=== PATIENT | male | born 1940 | race Caucasian/White ===

== ENCOUNTER → 2017-06-24 | Outpatient (CLI) | payer MEDICARE, OTHER ==
[2017-06-24 10:11] LABS: ABSOLUTE EOSINOPHILS # (AUTO) 0.1 10^3/uL (0.0-0.6); ABSOLUTE LYMPHOCYTES (AUTO) 1.5 10^3/uL (0.5-4.7); ABSOLUTE MONOCYTES (AUTO) 0.6 10^3/uL (0.1-1.4); ABSOLUTE NEUT (AUTO) 4.1 10^3/uL (1.7-8.2); BASOPHILS % (AUTO) 0.4 % (0-2); EOSINOPHILS % (AUTO) 2.3 % (0-6); HEMATOCRIT 40.4 % (37.9-51.0); HEMOGLOBIN 14.3 g/dL (13.5-17.0); HGB HCT DIFFERENCE 2.5; MEAN CORPUSCULAR HEMOGLOBIN 34.3 pg (27.0-33.4); MEAN CORPUSCULAR HGB CONC 35.4 g/dL (32.0-36.0); MEAN CORPUSCULAR VOLUME 97 fl (80-97); MONOCYTES % (AUTO) 9.3 % (3-13); RED BLOOD COUNT 4.17 10^6/uL (4.35-5.55); RED CELL DISTRIBUTION WIDTH 13.5 % (11.5-14.0); WHITE BLOOD COUNT 6.3 10^3/uL (4.0-10.5)
[2017-06-24 10:31] LABS: ALANINE AMINOTRANSFERASE 25 U/L (21-72); ALKALINE PHOSPHATASE 72 U/L (38-126); ANION GAP 10 (5-19); ASPARTATE AMINO TRANSFERASE 26 U/L (17-59); BILIRUBIN,DIRECT 0.3 mg/dL (0.0-0.4); BLOOD UREA NITROGEN 10 mg/dL (7-20); CALCIUM 9.2 mg/dL (8.4-10.2); CARBON DIOXIDE 29 mmol/L (22-30); CHLORIDE 95 mmol/L (98-107); CHOLESTEROL 160.31 mg/dL (0-200); Direct HDL 67 mg/dL (>40); GLUCOSE 77 mg/dL (75-110); POTASSIUM 4.9 mmol/L (3.6-5.0); SODIUM 133.8 mmol/L (137-145); TOTAL PROTEIN 6.5 g/dL (6.3-8.2); TRIGLYCERIDES 41 mg/dL (<150)
[2017-06-24 10:42] LABS: DIRECT LDL 78 mg/dL (<100)
== END ==
LOC: OD 08:53
PROVIDERS: ATTEND Internal Medicine
DX: I25.10 Atherosclerotic heart disease of native coronary artery without angina pectoris (principal); I10 Essential (primary) hypertension; I73.9 Peripheral vascular disease, unspecified; E78.5 Hyperlipidemia, unspecified; R53.82 Chronic fatigue, unspecified
CPT/HCPCS: 36415; 80053; 80061; 84443; 85025

== ENCOUNTER 2017-08-22 10:40 | Observation (INO) | payer MEDICARE, OTHER ==
[2017-08-22] MEDS ORDERED: ONDANSETRON HCL INJ/PF 4 MG/2 ML SDV IV ONE (10:53)
[2017-08-22] MEDS ORDERED: NORMAL SALINE 1000 ML 1,000 ML IV PRN (10:53)
--- NOTE | 2017-08-22 10:53 | ER Document Report ---
ED Medical Screen (RME) - General Chief Complaint: Abdominal Pain Stated Complaint: VOMITING Time Seen by Provider: 08/22/17 10:48 Mode of Arrival: Ambulatory Information source: Patient TRAVEL OUTSIDE OF THE [place] IN LAST 30 DAYS: No - HPI Patient complains to provider of: Nausea, vomiting, diarrhea Notes: 08/22/17 10:53 Patient is a 76-year-old male presenting to the emergency room today complaining of 3 day history of nausea, vomiting, diarrhea, crampy abdominal pain, denies urinary symptoms, no fevers Past Medical History Renal/ Medical History: Denies: Hx Peritoneal Dialysis Physical Exam - Vital signs Vitals: Temp Pulse Resp BP Pulse Ox 97.5 F 102 H 16 160/76 H 94 08/22/17 10:43 08/22/17 10:43 08/22/17 10:43 08/22/17 10:43 08/22/17 10:43 Course - Vital Signs Vital signs: Temp Pulse Resp BP Pulse Ox 97.5 F 102 H 16 160/76 H 94 08/22/17 10:43 08/22/17 10:43 08/22/17 10:43 08/22/17 10:43 08/22/17 10:43
[2017-08-22 11:39] LABS: APPEARANCE,URINE SLIGHTLY-CLOUDY; BILIRUBIN,URINE NEGATIVE (NEGATIVE); GLUCOSE, URINE NEGATIVE (NEGATIVE); KETONES,URINE 20 mg/dL (NEGATIVE); LEUKOCYTE ESTERASE,URINE NEGATIVE (NEGATIVE); NITRITE,URINE NEGATIVE (NEGATIVE); PROTEIN,URINE NEGATIVE (NEGATIVE); URINE SPECIFIC GRAVITY 1.016; UROBILINOGEN,URINE NEGATIVE mg/dL (<2.0)
--- NOTE | 2017-08-22 12:06 | ER Document Report ---
ED General - General Chief Complaint: Abdominal Pain Stated Complaint: VOMITING Time Seen by Provider: 08/22/17 10:48 Mode of Arrival: Ambulatory Information source: Patient Notes: Patient presents to emergency department with complaints of vomiting diarrhea abdominal pain for the past 3 days. Patient reports on he experienced vomiting diarrhea and then after that abdominal pain. He reports he is unable to keep anything down although he was able to drink some Gatorade this morning. He denies fever. He reports he lives alone no recent antibiotics no recent overseas trips. Denies pain with void, denies testicular pain. Patient also complains of back pain,reports chronic back pain history of 2 back surgeries. Denies chest pain. TRAVEL OUTSIDE OF THE [place] IN LAST 30 DAYS: No - HPI Onset: Other - Onset/Duration: Persistent Quality of pain: Cramping Severity: Severe Pain Level: 4 Associated symptoms: Diarrhea, Nausea, Vomiting Exacerbated by: Denies Relieved by: Denies Similar symptoms previously: No Recently seen / treated by doctor: No - Related Data Allergies/Adverse Reactions: ciprofloxacin Allergy (Mild, Verified 08/22/17 10:59) Home Medications: Current Home Medications Dexlansoprazole [Dexilant 30 mg Capsule] 30 mg PO DAILY 08/22/17 [History] Gabapentin [Neurontin 300 mg Capsule] 600 mg PO Q12 08/22/17 [History] Lisinopril [Prinivil 10 mg Tablet] 10 mg PO DAILY 08/22/17 [History] Metoprolol Succinate [Toprol Xl 50 mg Tab.sr] 25 mg PO DAILY 08/22/17 [History] Multivitamin/Iron/Folic Acid [Centrum Adults Tablet] 1 tab PO DAILY 08/22/17 [ History] Oxycodone HCl/Acetaminophen [Oxycodone-Acetaminophen 5-325] 1 tab PO Q12 [History] Ranolazine [Ranexa 500 mg Tab.sr] 1,000 mg PO QAM 08/22/17 [History] Ranolazine [Ranexa 500 mg Tab.sr] 1,000 mg PO QHS 08/22/17 [History] Rosuvastatin Calcium [Crestor 10 mg Tablet] 10 mg PO DAILY 08/22/17 [History] Sertraline HCl [Zoloft 50 mg Tablet] 50 mg PO QHS 08/22/17 [History] Silodosin [Rapaflo] 8 mg PO DAILY 08/22/17 [History] Past Medical History - General Information source: Patient - Social History Smoking Status: Never Smoker Chew tobacco use (# tins/day): No Frequency of alcohol use: Occasional - 2 beers a day Drug Abuse: None Occupation: retired [employer] Lives with: Alone Family History: None Patient has suicidal ideation: No Patient has homicidal ideation: No - Past Medical History Cardiac Medical History: Reports: Hx Coronary Artery Disease, Hx Hypercholesterolemia, Hx Hypertension Renal/ Medical History: Denies: Hx Peritoneal Dialysis Past Surgical History: Reports: Hx Abdominal Surgery - hernia repair, Hx Cardiac Surgery, Hx Orthopedic Surgery - back surgery Review of Systems - Review of Systems Notes: Review HPI for review of systems., All other systems negative Physical Exam - Vital signs Vitals: Temp Pulse Resp BP Pulse Ox 97.5 F 102 H 16 160/76 H 94 08/22/17 10:43 08/22/17 10:43 08/22/17 10:43 08/22/17 10:43 08/22/17 10:43 - Notes Notes: PHYSICAL EXAMINATION: GENERAL: Nontoxic looking, no acute distress HEAD: Atraumatic, normocephalic. EYES: Pupils equal round extraocular movements intact, sclera anicteric, conjunctiva are normal. ENT: nares patent, Moist mucous membranes. NECK: Normal range of motion, supple without lymphadenopathy LUNGS: CTAB and equal. No wheezes rales or rhonchi. HEART: Regular rate and rhythm +murmur ABDOMEN: Soft, lower abdominal tenderness. No guarding, no rebound BACK: Chronic back pain EXTREMITIES: Normal range of motion, no pitting edema. No cyanosis. NEUROLOGICAL: Cranial nerves grossly intact. Normal sensory/motor exams. PSYCH: Normal mood, normal affect. SKIN: Warm, Dry, normal turgor, no rashes or lesions noted Course - Re-evaluation Re-evalutation: 08/22/17 12:05 Patient tachycardic will obtain labs 08/22/17 13:59 CT Obtained diverticulosis ileus pattern noted white count 11.1. Dr. Tompkins consulted Dr. Tompkins agrees with plan of care to admit for observation rehydration Dr. Calderon contacted and agrees to admission regular floor. 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 - Vital Signs Vital signs: Temp Pulse Resp BP Pulse Ox 97.5 F 79 16 160/76 H 94 08/22/17 10:43 08/22/17 15:30 08/22/17 10:43 08/22/17 10:43 08/22/17 10:43 - Laboratory Result Diagrams: 08/22/17 12:10 08/22/17 12:10 Laboratory results interpreted by me: 08/22/17 08/22/17 08/22/17 11:00 12:10 12:10 WBC 11.1 H RBC 4.05 L MCH 33.8 H RDW 14.7 H Seg Neutrophils % 79.5 H Lymphocytes % 11.9 L Absolute Neutrophils 8.8 H Sodium 129.9 L Chloride 93 L Total Protein 5.7 L Urine Ketones 20 H - Diagnostic Test Radiology reviewed: Image reviewed, Reports reviewed - diverticulosis, ileus - EKG Interpretation by Me EKG shows normal: Sinus rhythm Rate: Normal - Consults BUSTEED Time consulted: 13:58 Reason for consultation: 08/22/17 13:58 ILEUS, DIVERTICULOSIS, ADMISSION Consulted provider: will see as inpatient Discharge - Discharge Clinical Impression: Ileus Nausea & vomiting Qualifiers: Vomiting type: unspecified Vomiting Intractability: non-intractable Qualified Code(s): R11.2 - Nausea with vomiting, unspecified Diarrhea Qualifiers: Diarrhea type: unspecified type Qualified Code(s): R19.7 - Diarrhea, unspecified Diverticulosis Qualifiers: Diverticulosis site: diverticulosis of large intestine Diverticulosis bleeding : diverticulosis without bleeding Qualified Code(s): K57.30 - Diverticulosis of large intestine without perforation or abscess without bleeding Condition: Stable Disposition: ADMITTED OBSERVATION Admitting Provider: Hospitalist - busteed Unit Admitted: Medical Floor
[2017-08-22 12:27] LABS: ABSOLUTE EOSINOPHILS # (AUTO) 0.1 10^3/uL (0.0-0.6); ABSOLUTE LYMPHOCYTES (AUTO) 1.3 10^3/uL (0.5-4.7); ABSOLUTE MONOCYTES (AUTO) 0.9 10^3/uL (0.1-1.4); ABSOLUTE NEUT (AUTO) 8.8 10^3/uL (1.7-8.2); BASOPHILS % (AUTO) 0.2 % (0-2); EOSINOPHILS % (AUTO) 0.7 % (0-6); HEMATOCRIT 39.1 % (37.9-51.0); HEMOGLOBIN 13.7 g/dL (13.5-17.0); LYMPHOCYTES % (AUTO) 11.9 % (13-45); MEAN CORPUSCULAR HEMOGLOBIN 33.8 pg (27.0-33.4); MEAN CORPUSCULAR VOLUME 97 fl (80-97); MONOCYTES % (AUTO) 7.7 % (3-13); RED BLOOD COUNT 4.05 10^6/uL (4.35-5.55); RED CELL DISTRIBUTION WIDTH 14.7 % (11.5-14.0); SEGMENTED NEUTROPHILS % (AUTO) 79.5 % (42-78); WHITE BLOOD COUNT 11.1 10^3/uL (4.0-10.5)
[2017-08-22 12:50] LABS: ALANINE AMINOTRANSFERASE 27 U/L (21-72); ALBUMIN 3.6 g/dL (3.5-5.0); ALKALINE PHOSPHATASE 95 U/L (38-126); ANION GAP 11 (5-19); ASPARTATE AMINO TRANSFERASE 21 U/L (17-59); BILIRUBIN,DIRECT 0.4 mg/dL (0.0-0.4); BILIRUBIN,TOTAL 1.3 mg/dL (0.2-1.3); BLOOD UREA NITROGEN 12 mg/dL (7-20); CALCIUM 9.5 mg/dL (8.4-10.2); CARBON DIOXIDE 26 mmol/L (22-30); CHLORIDE 93 mmol/L (98-107); CREATININE RESULT 0.69 mg/dL (0.52-1.25); GLUCOSE 96 mg/dL (75-110); LIPASE 44.7 U/L (23-300); SODIUM 129.9 mmol/L (137-145); TOTAL PROTEIN 5.7 g/dL (6.3-8.2)
--- NOTE | 2017-08-22 13:43 | RADIOLOGY REPORT (SQ) ---
EXAM DESCRIPTION: CT ABD/PELVIS WITH IV ONLY COMPLETED DATE/TIME: 08/22/2017 1:29 pm REASON FOR STUDY: abd pain, n/v COMPARISON: None. TECHNIQUE: CT scan of the abdomen and pelvis performed using helical scanning technique with dynamic intravenous contrast injection. No oral contrast. Images reviewed with lung, soft tissue, and bone windows. Reconstructed coronal and sagittal MPR images reviewed. Delayed images for evaluation of the urinary system also acquired. All images stored on PACS. All CT scanners at this facility use dose modulation, iterative reconstruction, and/or weight based d osing when appropriate to reduce radiation dose to as low as reasonably achievable (ALARA). [facility]: Dose Right [facility]: CareDose [facility]: Dose Right [facility]: Teradose 4D [facility]: [employer] CONTRAST TYPE AND DOSE: contrast/concentration: Isovue 370.00 mg/ml; Total Contrast Delivered: 78.0 ml; Total Saline Delivered: 67.0 ml RENAL FUNCTION: BUN 12 creatinine 0.7 RADIATION DOSE: Up-to-date CT equipment and radiation dose reduction techniques were employed. CTDIv ol: 6.2 - 9.1 mGy. DLP: 737 mGy-cm.. LIMITATIONS: Artifact from lower lumbar fusion. Patient motion. FINDINGS: LOWER CHEST: No significant findings. No nodules or infiltrates. LIVER: Normal size. No masses. No dilated ducts. SPLEEN: Normal size. No focal lesions. PANCREAS: No masses. No significant calcifications. No adjacent inflammation or peripancreatic fluid collections. Pancreatic duct not dilated. GALLBLADDER: No identified stones by CT criteria. No inflammatory changes to suggest cholecystitis. ADRENAL GLANDS: No significant masses or asymmetry. RIGHT KIDNEY AND URETER: No solid masses. No significant calcifications. No hydronephrosis or hyd roureter. LEFT KIDNEY AND URETER: No solid masses. No significant calcifications. No hydronephrosis or hydr oureter. AORTA AND VESSELS: No aneurysm. RETROPERITONEUM: No retroperitoneal adenopathy, hemorrhage or masses. BOWEL AND PERITONEAL CAVITY: Diverticulosis descending and sigmoid colon. Gas fluid levels in loops of small bowel caliber upper limits of normal in the left upper quadrant. New clear transition. Mor e distal small bowel is normal in caliber. Gas in the colon. No free air. Trace free fluid in the pelvis. APPENDIX: Normal. PELVIS: See above. Normal bladder. ABDOMINAL WALL: Prior ventral hernia repair. BONES: No acute findings. OTHER: No other significant finding. IMPRESSION: Diverticulosis. Ileus pattern. No high-grade obstruction. TECHNICAL DOCUMENTATION: JOB ID: [id number] Quality ID # [id number]: Final reports with documentation of one or more dose reduction techniques (e.g., Au tomated exposure control, adjustment of the mA and/or kV according to patient size, use of iterative reconstruction technique) 2010 [employer]- All Rights Reserved
[2017-08-22] MEDS ORDERED: ACETAMINOPHEN 325 MG TABLET PO PRN (14:20)
[2017-08-22] MEDS ORDERED: ONDANSETRON HCL INJ/PF 4 MG/2 ML SDV IV PRN (14:20)
[2017-08-22] MEDS ORDERED: MORPHINE SULFATE 10 MG/ML INJ IV PRN (15:22)
--- NOTE | 2017-08-22 15:24 | PDOC H&P ---
History of Present Illness Admission Date/PCP: 08/22/17 14:20 IVELISSE DIMAS, Patient complains of: Nausea, vomiting, diarrhea and abdominal pain History of Present Illness: CHANNING ROSS is a 76 year old male, with past medical history of essential hypertension, coronary artery disease status post stent, dyslipidemia and GERD; who presents to [facility] emergency room with complaints of nausea, vomiting and diarrhea for the last 3 days. He states he was unable to keep any liquids down yesterday. His morning he was able to keep down some Gatorade. He continues to have diarrhea and diffuse abdominal discomfort. He denies fever or chills. He has no sick contacts at home. He feels generally weak. He has had diarrhea this morning, none since that time. He denies any recent antibiotic use. He denies the consumption of any undercooked poultry or well water. He has not travelled out of the area Past Medical History Cardiac Medical History: Reports: Coronary Artery Disease, Hyperlipidema, Hypertension Pulmonary Medical History: Reports: None EENT Medical History: Reports: None Neurological Medical History: Reports: None Endocrine Medical History: Reports: None Malignancy Medical History: Reports: None GI Medical History: Reports: Gastroesophageal Reflux Disease Musculoskeltal Medical History: Reports: Arthritis, Other - Chronic back pain Skin Medical History: Reports: None Psychiatric Medical History: Reports: None Traumatic Medical History: Reports: None Hematology: Reports: None Infectious Medical History: Reports: None Past Surgical History Past Surgical History: Reports: Orthopedic Surgery - back surgery Social History Information Source: Patient Lives with: Alone Smoking Status: Never Smoker Frequency of Alcohol Use: Rare Hx Recreational Drug Use: No - Advance Directive Resuscitation Status: Full Code Family History Family History: CAD, Hyperlipidemia, Hypertension Parental Family History Reviewed: Yes Children Family History Reviewed: Yes Sibling(s) Family History Reviewed.: Yes Medication/Allergy Home Medications: Dexlansoprazole [Dexilant 30 mg Capsule] 30 mg PO DAILY 08/22/17 Gabapentin [Neurontin 300 mg Capsule] 600 mg PO Q12 08/22/17 Lisinopril [Prinivil 10 mg Tablet] 10 mg PO DAILY 08/22/17 Metoprolol Succinate [Toprol Xl 50 mg Tab.sr] 25 mg PO DAILY 08/22/17 Multivitamin/Iron/Folic Acid [Centrum Adults Tablet] 1 tab PO DAILY 08/22/17 Oxycodone HCl/Acetaminophen [Oxycodone-Acetaminophen 5-325] 1 tab PO Q12 Ranolazine [Ranexa 500 mg Tab.sr] 1,000 mg PO QAM 08/22/17 Ranolazine [Ranexa 500 mg Tab.sr] 1,000 mg PO QHS 08/22/17 Rosuvastatin Calcium [Crestor 10 mg Tablet] 10 mg PO DAILY 08/22/17 Sertraline HCl [Zoloft 50 mg Tablet] 50 mg PO QHS 08/22/17 Silodosin [Rapaflo] 8 mg PO DAILY 08/22/17 Allergies/Adverse Reactions: ciprofloxacin Allergy (Mild, Verified 08/22/17 10:59) Review of Systems Constitutional: PRESENT: anorexia, chills, weakness Eyes: ABSENT: visual disturbances Ears: ABSENT: hearing changes Cardiovascular: ABSENT: chest pain, dyspnea on exertion, edema, orthropnea, palpitations Respiratory: ABSENT: cough, hemoptysis Gastrointestinal: PRESENT: abdominal pain, bloating, diarrhea, nausea, vomiting Genitourinary: ABSENT: dysuria, hematuria Musculoskeletal: PRESENT: back pain Integumentary: ABSENT: rash, wounds Neurological: ABSENT: abnormal gait, abnormal speech, confusion, dizziness, focal weakness, syncope Psychiatric: ABSENT: anxiety, depression, homidical ideation, suicidal ideation Hematologic/Lymphatic: ABSENT: easy bleeding, easy bruising Physical Exam Vital Signs: Temp Pulse Resp BP Pulse Ox 97.5 F 102 H 16 160/76 H 94 08/22/17 10:43 08/22/17 10:43 08/22/17 10:43 08/22/17 10:43 08/22/17 10:43 General appearance: PRESENT: no acute distress, well-developed, well-nourished Head exam: PRESENT: atraumatic, normocephalic Eye exam: PRESENT: conjunctival injection Ear exam: PRESENT: normal external ear exam Mouth exam: PRESENT: moist, tongue midline Neck exam: ABSENT: carotid bruit, JVD, lymphadenopathy, thyromegaly Respiratory exam: PRESENT: clear to auscultation bonnie. ABSENT: rales, rhonchi, wheezes Cardiovascular exam: PRESENT: bradycardia Pulses: PRESENT: normal dorsalis pedis pul Vascular exam: PRESENT: normal capillary refill GI/Abdominal exam: PRESENT: hyperactive bowel sounds - generalized to deep palpation, soft, tenderness Rectal exam: PRESENT: deferred Extremities exam: PRESENT: full ROM. ABSENT: calf tenderness, clubbing, pedal edema Musculoskeletal exam: PRESENT: ambulatory, full ROM, normal inspection Neurological exam: PRESENT: alert, awake, oriented to person, oriented to place , oriented to time, oriented to situation, CN II-XII grossly intact. ABSENT: motor sensory deficit Psychiatric exam: PRESENT: appropriate affect, normal mood. ABSENT: homicidal ideation, suicidal ideation Skin exam: PRESENT: dry, intact, warm. ABSENT: cyanosis, rash Results Impressions: Abdomen/Pelvis CT 08/22/17 12:42 IMPRESSION: Diverticulosis. Ileus pattern. No high-grade obstruction. Assessment & Plan - Diagnosis (1) Hyponatremia Is this a current diagnosis for this admission?: Yes Plan: Secondary to dehydration,diarrhea, nausea and vomiting. Will gently rehydrate (2) Diarrhea Qualifiers: Diarrhea type: unspecified type Qualified Code(s): R19.7 - Diarrhea, unspecified (4) Nausea & vomiting Qualifiers: Vomiting type: unspecified Vomiting Intractability: non-intractable Qualified Code(s): R11.2 - Nausea with vomiting, unspecified Plan: IV fluids and zofran (6) CAD (coronary artery disease) Qualifiers: Coronary Disease-Associated Artery/Lesion type: [place] artery Associated angina: with stable angina Is this a current diagnosis for this admission?: Yes Plan: Continue home medication (7) Essential hypertension Is this a current diagnosis for this admission?: Yes Plan: Continue home medications (8) GERD (gastroesophageal reflux disease) Qualifiers: Esophagitis presence: esophagitis presence not specified Qualified Code(s) : K21.9 - Gastro-esophageal reflux disease without esophagitis Is this a current diagnosis for this admission?: Yes Plan: Continue PPI therapy and add histamine jemma (9) Dyslipidemia Is this a current diagnosis for this admission?: Yes Plan: Continue statin (10) Chronic back pain Qualifiers: Back pain location: low back pain Is this a current diagnosis for this admission?: Yes Plan: continue pain medication as necessary - Time Time Spent: 50 to 70 Minutes Critical Time spent with patient: 25-34 minutes Medications reviewed and adjusted accordingly: Yes Anticipated discharge: Home Within: within 24 hours
[2017-08-22] MEDS ORDERED: ENOXAPARIN SODIUM INJ 40 MG/0.4 ML DISP.SYRIN SUBCUT ONE (16:00)
--- NOTE | 2017-08-22 16:31 | EKG REPORT ---
SEVERITY:- OTHERWISE NORMAL ECG - SINUS RHYTHM BORDERLINE LEFT AXIS DEVIATION : Confirmed by: Annabelle Foley 22-Aug-2017 16:30:16
[2017-08-22] MEDS: NORMAL SALINE 1000 ML 1,000 ML IV PRN ×2 (16:56→21:14)
[2017-08-22] MEDS: LANSOPRAZOLE 30 MG TAB.RAP.DR PO SCH (16:56)
[2017-08-22] MEDS: DOCUSATE SODIUM 100 MG CAPSULE PO SCH (17:08)
[2017-08-22] MEDS ORDERED: DOCUSATE SODIUM 100 MG/10 ML UDC PO SCH (18:00)
[2017-08-22] MEDS: OXYCODONE-ACETAMINOPHEN 5-325 MG TABLET PO PRN (20:11)
[2017-08-22] MEDS: SERTRALINE HCL 50 MG TABLET PO SCH (21:14)
[2017-08-22] MEDS: ATORVASTATIN CALCIUM 20 MG TABLET PO SCH (21:14)
[2017-08-22] MEDS: FAMOTIDINE INJ/PF 20 MG/2 ML SDV IV SCH (21:14)
[2017-08-22] MEDS: GABAPENTIN 300 MG CAPSULE PO SCH (21:14)
[2017-08-22] MEDS ORDERED: RANOLAZINE 500 MG TAB.SR.12H PO ONE (22:10)
[2017-08-22] MEDS: RANOLAZINE 500 MG TAB.SR.12H PO SCH (23:16)
[2017-08-23 05:06] LABS: ANION GAP 9 (5-19); BLOOD UREA NITROGEN 9 mg/dL (7-20); CALCIUM 8.7 mg/dL (8.4-10.2); CARBON DIOXIDE 26 mmol/L (22-30); CHLORIDE 100 mmol/L (98-107); CREATININE RESULT 0.64 mg/dL (0.52-1.25); GLUCOSE 79 mg/dL (75-110); LIPASE 62.7 U/L (23-300); MAGNESIUM 1.9 mg/dL (1.6-2.3); SODIUM 134.6 mmol/L (137-145)
[2017-08-23] MEDS: LANSOPRAZOLE 30 MG TAB.RAP.DR PO SCH ×2 (06:11→16:22)
[2017-08-23] MEDS: NORMAL SALINE 1000 ML 1,000 ML IV PRN (06:11)
[2017-08-23] MEDS ORDERED: RANOLAZINE 500 MG TAB.SR.12H PO SCH (08:00)
[2017-08-23] MEDS: DOCUSATE SODIUM 100 MG CAPSULE PO SCH ×2 (09:46→18:12)
[2017-08-23] MEDS: GABAPENTIN 300 MG CAPSULE PO SCH ×2 (09:47→22:27)
[2017-08-23] MEDS: FAMOTIDINE INJ/PF 20 MG/2 ML SDV IV SCH ×2 (09:48→22:27)
[2017-08-23] MEDS ORDERED: METOPROLOL SUCCINATE 25 MG TAB.SR.24H PO SCH (10:00)
[2017-08-23] MEDS ORDERED: METOPROLOL SUCCINATE 50 MG TAB.SR.24H PO SCH (10:00)
[2017-08-23] MEDS ORDERED: ENOXAPARIN SODIUM INJ 40 MG/0.4 ML DISP.SYRIN SUBCUT SCH (10:00)
[2017-08-23] MEDS ORDERED: (PENDING PHARMACY ID) (Silodosin [Rapaflo] 8 MG) PO SCH (10:00)
[2017-08-23] MEDS ORDERED: LISINOPRIL 10 MG TABLET PO SCH (10:00)
[2017-08-23] MEDS ORDERED: CIPROFLOXACIN HCL 500 MG TABLET PO SCH (10:45)
[2017-08-23] MEDS ORDERED: CEFUROXIME 500 MG TABLET PO ONE (11:00)
--- NOTE | 2017-08-23 14:05 | PDOC DISCHARGE SUMMARY ---
General - Admit/Disc Date/PCP Admission Date/Primary Care Provider: 08/22/17 14:20 IVELISSE DIMAS, Discharge Date: 08/24/17 - Discharge Diagnosis (1) Hyponatremia Is this a current diagnosis for this admission?: Yes Summary: Resolved secondary to dehydration and vomiting (2) Diarrhea Is this a current diagnosis for this admission?: Yes Summary: Resolving (3) Ileus Is this a current diagnosis for this admission?: Yes Summary: Resolved secondary to viral gastroenteritis (4) Nausea & vomiting Summary: Resolved (5) CAD (coronary artery disease) of artery bypass graft Is this a current diagnosis for this admission?: Yes Summary: Continue home medications (6) CAD (coronary artery disease) Is this a current diagnosis for this admission?: Yes (7) Essential hypertension Is this a current diagnosis for this admission?: Yes Summary: Continue home medications (8) GERD (gastroesophageal reflux disease) Is this a current diagnosis for this admission?: Yes Summary: Continue PPI therapy (9) Dyslipidemia Is this a current diagnosis for this admission?: Yes Summary: Continue statin (10) Chronic back pain Is this a current diagnosis for this admission?: Yes Summary: Continue home pain regimen - Additional Information Resuscitation Status: Full Code Discharge Diet: Regular, Cardiac Discharge Activity: Activity As Tolerated, Balance Activity w/Rest Home Medications: Dexlansoprazole [Dexilant 30 mg Capsule] 30 mg PO DAILY 08/22/17 Gabapentin [Neurontin 300 mg Capsule] 600 mg PO Q12 08/22/17 Lisinopril [Prinivil 10 mg Tablet] 10 mg PO DAILY 08/22/17 Metoprolol Succinate [Toprol Xl 50 mg Tab.sr] 25 mg PO DAILY 08/22/17 Multivitamin/Iron/Folic Acid [Centrum Adults Tablet] 1 tab PO DAILY 08/22/17 Ranolazine [Ranexa 500 mg Tab.sr] 1,000 mg PO QAM 08/22/17 Ranolazine [Ranexa 500 mg Tab.sr] 1,000 mg PO QHS 08/22/17 Rosuvastatin Calcium [Crestor 10 mg Tablet] 10 mg PO DAILY 08/22/17 Sertraline HCl [Zoloft 50 mg Tablet] 50 mg PO QHS 08/22/17 Silodosin [Rapaflo] 8 mg PO DAILY 08/22/17 Acetaminophen [Tylenol 325 mg Tablet] 650 mg PO Q4HP PRN tablet 08/23/17 Cefuroxime Axetil [Ceftin 500 mg Tablet] 500 mg PO BID #18 tablet 08/23/17 Oxycodone HCl/Acetaminophen [Percocet 5-325 mg Tablet] 1 tab PO Q12HP PRN tablet 08/23/17 History of Present Illness History of Present Illness: CHANNING ROSS is a 76 year old male, with past medical history of essential hypertension, coronary artery disease status post stent, dyslipidemia and GERD; who presents to [facility]'s emergency room with complaints of nausea, vomiting and diarrhea for the last 3 days. He states he was unable to keep any liquids down yesterday. His morning he was able to keep down some Gatorade. He continues to have diarrhea and diffuse abdominal discomfort. He denies fever or chills. He has no sick contacts at home. He feels generally weak. He has had diarrhea this morning, none since that time. He denies any recent antibiotic use. He denies the consumption of any undercooked poultry or well water. He has not travelled out of the area Hospital Course Hospital Course: Patient was admitted to telemetry on the hospitalist service. He was given IV normal saline for rehydration. He was given Zofran IV for nausea and Pepcid IV for epigastric pain. His vomiting resolved after Zofran was initiated. This morning he feels much improved. Urine culture was positive for greater than 100 ,000 colonies of e. coli. He admits to urinary frequency over the last several days. He denies dysuria or fever. He was started on oral Ceftin. His diet was advanced to regular. His diarrhea resolved. He feels much improved and ready for discharge Physical Exam Vital Signs: Temp Pulse Resp BP Pulse Ox 99.3 F 74 18 105/41 L 95 08/23/17 12:06 08/23/17 12:06 08/23/17 12:06 08/23/17 12:06 08/23/17 12:06 Intake & Output 08/22/17 08/23/17 08/24/17 06:59 06:59 06:59 Intake Total 600 Balance 600 Weight 74.8 kg General appearance: PRESENT: no acute distress, well-developed, well-nourished Head exam: PRESENT: atraumatic, normocephalic Eye exam: PRESENT: conjunctiva pink, EOMI, PERRLA. ABSENT: scleral icterus Ear exam: PRESENT: normal external ear exam Mouth exam: PRESENT: moist, tongue midline Neck exam: ABSENT: carotid bruit, JVD, lymphadenopathy, thyromegaly Respiratory exam: PRESENT: clear to auscultation bonnie. ABSENT: rales, rhonchi, wheezes Cardiovascular exam: PRESENT: RRR. ABSENT: diastolic murmur, rubs, systolic murmur Pulses: PRESENT: normal dorsalis pedis pul Vascular exam: PRESENT: normal capillary refill GI/Abdominal exam: PRESENT: normal bowel sounds - mild epigastric tenderness, soft, tenderness Rectal exam: PRESENT: deferred Extremities exam: PRESENT: full ROM. ABSENT: calf tenderness, clubbing, pedal edema Neurological exam: PRESENT: alert, awake, oriented to person, oriented to place , oriented to time, oriented to situation, CN II-XII grossly intact. ABSENT: motor sensory deficit Psychiatric exam: PRESENT: appropriate affect, normal mood. ABSENT: homicidal ideation, suicidal ideation Results Laboratory Results: 08/23/17 03:43 08/23/17 03:43 Sodium 134.6 L Potassium 4.0 Chloride 100 Carbon Dioxide 26 Anion Gap 9 BUN 9 Creatinine 0.64 Est GFR ( Amer) > 60 Est GFR (Non-Af Amer) > 60 Glucose 79 Calcium 8.7 Magnesium 1.9 Lipase 62.7 Impressions: Abdomen/Pelvis CT 08/22/17 12:42 IMPRESSION: Diverticulosis. Ileus pattern. No high-grade obstruction. Qualifiers PATEINT BEING DISCHARGED WITH ANY OF THE FOLLOWING DIAGNOSIS?: No Plan Discharge Plan: Home with friend Time Spent: Less than 30 Minutes
[2017-08-23] MEDS: OXYCODONE-ACETAMINOPHEN 5-325 MG TABLET PO PRN (16:24)
[2017-08-23] MEDS ORDERED: CEFUROXIME 500 MG TABLET PO SCH (18:00)
[2017-08-23] MEDS: RANOLAZINE 500 MG TAB.SR.12H PO SCH (22:26)
[2017-08-23] MEDS: SERTRALINE HCL 50 MG TABLET PO SCH (22:27)
[2017-08-23] MEDS: ATORVASTATIN CALCIUM 20 MG TABLET PO SCH (22:27)
[2017-08-24] MEDS: LANSOPRAZOLE 30 MG TAB.RAP.DR PO SCH (07:05)
[2017-08-24 07:54] VITALS: BP 129/62
[2017-08-24] MEDS ORDERED: ONDANSETRON HCL INJ/PF 4 MG/2 ML SDV IV PRN (10:00)
[2017-08-24] MEDS ORDERED: FAMOTIDINE 20 MG TABLET PO SCH (10:00)
--- NOTE | 2017-08-24 14:00 | PDOC PROGRESS REPORT ---
Subjective Progress Note for:: 08/24/17 Subjective:: Denies any complaints Physical Exam Vital Signs: Temp Pulse Resp BP Pulse Ox 97.7 F 63 18 129/62 H 97 08/24/17 10:31 08/24/17 10:31 08/24/17 10:31 08/24/17 10:31 08/24/17 10:31 Intake & Output 08/23/17 08/24/17 08/25/17 06:59 06:59 06:59 Intake Total 600 1480 Balance 600 1480 Weight 74.8 kg 75.7 kg General appearance: PRESENT: no acute distress Eye exam: PRESENT: conjunctiva pink. ABSENT: scleral icterus Ear exam: PRESENT: normal external ear exam Mouth exam: PRESENT: moist, tongue midline Neck exam: ABSENT: JVD Respiratory exam: PRESENT: clear to auscultation bonnie. ABSENT: rales, rhonchi, wheezes Cardiovascular exam: PRESENT: RRR. ABSENT: diastolic murmur, rubs, systolic murmur GI/Abdominal exam: PRESENT: normal bowel sounds, soft. ABSENT: distended, guarding, mass, organolmegaly, rebound, tenderness Rectal exam: PRESENT: deferred Extremities exam: ABSENT: calf tenderness, clubbing, pedal edema Neurological exam: PRESENT: alert, awake, oriented to person, oriented to place , oriented to time, oriented to situation, CN II-XII grossly intact. ABSENT: motor sensory deficit Psychiatric exam: PRESENT: appropriate affect Skin exam: PRESENT: dry, intact, warm. ABSENT: cyanosis, rash Results Laboratory Results: 08/23/17 03:43 Impressions: Abdomen/Pelvis CT 08/22/17 12:42 IMPRESSION: Diverticulosis. Ileus pattern. No high-grade obstruction. Assessment & Plan - Diagnosis (1) Ileus Is this a current diagnosis for this admission?: Yes Plan: The patient's symptoms all have resolved. There is been no real change from yesterday. Please see the discharge summary dictated yesterday. Patient is discharged home. (2) Hyponatremia Is this a current diagnosis for this admission?: Yes (3) CAD (coronary artery disease) Qualifiers: Coronary Disease-Associated Artery/Lesion type: [place]aim[place] artery Associated angina: with stable angina Is this a current diagnosis for this admission?: Yes (4) Chronic back pain Qualifiers: Back pain location: low back pain Is this a current diagnosis for this admission?: Yes (5) Diarrhea Qualifiers: Diarrhea type: unspecified type Qualified Code(s): R19.7 - Diarrhea, unspecified Is this a current diagnosis for this admission?: Yes (6) Dyslipidemia Is this a current diagnosis for this admission?: Yes (7) Essential hypertension Is this a current diagnosis for this admission?: Yes (8) GERD (gastroesophageal reflux disease) Qualifiers: Esophagitis presence: esophagitis presence not specified Qualified Code(s) : K21.9 - Gastro-esophageal reflux disease without esophagitis Is this a current diagnosis for this admission?: Yes (9) Nausea & vomiting Qualifiers: Vomiting type: unspecified Vomiting Intractability: non-intractable Qualified Code(s): R11.2 - Nausea with vomiting, unspecified Is this a current diagnosis for this admission?: Yes (10) UTI (urinary tract infection) Is this a current diagnosis for this admission?: Yes Plan: Grew out strep viridans. Will go home with Ceftin. - Time Time Spent with patient: 25-34 minutes - Plan Summary Plan Summary: Patient is discharged home in stable condition. Follow-up with primary care in 1-2 weeks.
== END 2017-08-24 10:55 | disposition home or self-care (01) ==
LOC: ER 10:40 → UNDOADMOB 14:03 → EH 14:03 → 5 15:02
PROVIDERS: ADMIT Family Medicine; ATTEND Family Medicine
DX: E86.0 Dehydration (principal); E87.1 Hypo-osmolality and hyponatremia; R19.7 Diarrhea, unspecified; A08.4 Viral intestinal infection, unspecified; K56.7 Ileus, unspecified; I25.708 Atherosclerosis of coronary artery bypass graft(s), unspecified, with other forms of angina pectoris; I10 Essential (primary) hypertension; K21.9 Gastro-esophageal reflux disease without esophagitis; E78.5 Hyperlipidemia, unspecified; G89.29 Other chronic pain; M54.5 Low back pain; K57.30 Diverticulosis of large intestine without perforation or abscess without bleeding; R00.1 Bradycardia, unspecified; M19.90 Unspecified osteoarthritis, unspecified site; N39.0 Urinary tract infection, site not specified; B95.4 Other streptococcus as the cause of diseases classified elsewhere; Z79.899 Other long term (current) drug therapy; Z95.5 Presence of coronary angioplasty implant and graft; Z98.890 Other specified postprocedural states
CPT/HCPCS: 93005; 99285; 96374; 36415 ×2; 87086; 83690 ×2; 83735; 85025; 87088; 80048; 80053; 81001; 87186; 74177; 93010; G0378 ×4; A9270 ×15; J1650 ×2; J3490 ×2; J2405; J7030 ×2; S0028 ×2; 96361

== ENCOUNTER → 2017-12-03 | Outpatient (CLI) | payer MEDICARE, OTHER ==
--- NOTE | 2017-12-03 16:48 | RADIOLOGY REPORT (SQ) ---
EXAM DESCRIPTION: LUMBAR SPINE COMPLETE COMPLETED DATE/TIME: 12/03/2017 4:34 pm REASON FOR STUDY: LOW BACK PAIN M54.5 LOW BACK PAIN M50.30 OTHER CERVICAL DISC DEGENERATION, UNSP CERVICAL REGIO COMPARISON: CT abdomen pelvis with IV contrast 08/22/2017 NUMBER OF VIEWS: Five views including obliques. TECHNIQUE: AP, lateral, oblique, and sacral radiographic images acquired of the lumbar spine. LIMITATIONS: None. FINDINGS: MINERALIZATION: Osteopenic SEGMENTATION: Normal. No transitional anatomy. ALIGNMENT: Degenerative convex leftward lumbar curvature. VERTEBRAE: New 25% compression deformity at L1. Chronic 25% compression deformity L2. DISCS: High-grade disc space loss of height at L3-4, L4-5, and L5-S1. POSTERIOR ELEMENTS: Old bilateral laminectomy at L4 and L5 HARDWARE: Transpedicular screws and dorsal fixation plates from L3 through L5. There is lucency arou nd the left L5 screw indicating loosening. PARASPINAL SOFT TISSUES: Normal. PELVIS: Intact as visualized. No fractures or worrisome bone lesions. SI joints intact. OTHER: No other significant finding. IMPRESSION: New 25% compression deformity of the L1 vertebral body TECHNICAL DOCUMENTATION: JOB ID: [id number] [employer]- All Rights Reserved
== END ==
LOC: OD 16:09
PROVIDERS: ATTEND Internal Medicine
DX: M54.5 Low back pain (principal); M50.30 Other cervical disc degeneration, unspecified cervical region; I25.10 Atherosclerotic heart disease of native coronary artery without angina pectoris
CPT/HCPCS: 72110

== ENCOUNTER → 2017-12-16 | Outpatient (CLI) | payer MEDICARE, OTHER ==
[2017-12-16 13:06] LABS: ABSOLUTE EOSINOPHILS # (AUTO) 0.2 10^3/uL (0.0-0.6); ABSOLUTE LYMPHOCYTES (AUTO) 1.9 10^3/uL (0.5-4.7); ABSOLUTE MONOCYTES (AUTO) 0.9 10^3/uL (0.1-1.4); ABSOLUTE NEUT (AUTO) 6.2 10^3/uL (1.7-8.2); BASOPHILS % (AUTO) 0.3 % (0-2); EOSINOPHILS % (AUTO) 2.1 % (0-6); HEMATOCRIT 40.6 % (37.9-51.0); HEMOGLOBIN 13.6 g/dL (13.5-17.0); LYMPHOCYTES % (AUTO) 20.6 % (13-45); MEAN CORPUSCULAR HEMOGLOBIN 31.6 pg (27.0-33.4); MEAN CORPUSCULAR HGB CONC 33.6 g/dL (32.0-36.0); MEAN CORPUSCULAR VOLUME 94 fl (80-97); MONOCYTES % (AUTO) 9.5 % (3-13); PLATELET COUNT 273 10^3/uL (150-450); RED BLOOD COUNT 4.32 10^6/uL (4.35-5.55); RED CELL DISTRIBUTION WIDTH 13.9 % (11.5-14.0); SEGMENTED NEUTROPHILS % (AUTO) 67.5 % (42-78); TOTAL CELLS COUNTED % (AUTO) 100 %; WHITE BLOOD COUNT 9.2 10^3/uL (4.0-10.5)
[2017-12-16 13:12] LABS: APPEARANCE,URINE CLEAR; BILIRUBIN,URINE NEGATIVE (NEGATIVE); COLOR,URINE YELLOW; GLUCOSE, URINE NEGATIVE (NEGATIVE); KETONES,URINE NEGATIVE (NEGATIVE); LEUKOCYTE ESTERASE,URINE MODERATE (NEGATIVE); NITRITE,URINE NEGATIVE (NEGATIVE); PROTEIN,URINE NEGATIVE (NEGATIVE); URINE SPECIFIC GRAVITY 1.014; UROBILINOGEN,URINE NEGATIVE mg/dL (<2.0)
[2017-12-16 13:13] LABS: INTERNATIONAL RATION (INR) 0.85; PROTHROMBIN TIME 12.3 SEC (11.4-15.4)
[2017-12-16 13:14] LABS: PARTIAL THROMBOPLASTIN TIME 26.7 SEC (23.5-35.8)
== END ==
LOC: OD 12:10
PROVIDERS: ATTEND Pain Medicine Interventional Pain Medicine
DX: Z79.01 Long term (current) use of anticoagulants (principal); Z79.1 Long term (current) use of non-steroidal anti-inflammatories (NSAID)
CPT/HCPCS: 36415; 81001; 85025; 85610; 85730

== ENCOUNTER 2017-12-22 05:20 | Day surgery (SDC) | payer MEDICARE, OTHER ==
[~2017-12-22 05:20] MED LIST: CEFAZOLIN 1 GM/D5W RTU 1 GM/50 ML RTUPB IV PRN; LACTATED RINGERS 1000 ML IV PRN; LIDOCAINE 0.5% INJ-PF (5 MG/ML) 50 ML SDV SUBCUT PRN
[2017-12-22 06:27] LABS: APPEARANCE,URINE CLEAR; BILIRUBIN,URINE NEGATIVE (NEGATIVE); COLOR,URINE YELLOW; GLUCOSE, URINE NEGATIVE (NEGATIVE); KETONES,URINE NEGATIVE (NEGATIVE); LEUKOCYTE ESTERASE,URINE NEGATIVE (NEGATIVE); NITRITE,URINE NEGATIVE (NEGATIVE); PROTEIN,URINE NEGATIVE (NEGATIVE); URINE SPECIFIC GRAVITY 1.008; UROBILINOGEN,URINE NEGATIVE mg/dL (<2.0)
[2017-12-22] MEDS ORDERED: SODIUM BICARBONATE 8.4% INJ 50 MEQ/50 ML DISP.SYRIN ONE (06:42)
[2017-12-22] MEDS ORDERED: LIDOCAINE 1% INJ-PF (10 MG/ML) 30 ML SDV ONE (06:42)
[2017-12-22] MEDS ORDERED: FENTANYL CITRATE INJ/PF 100 MCG/2 ML AMPUL ONE (07:02)
[2017-12-22] MEDS ORDERED: MIDAZOLAM 2 MG/2 ML INJ ONE (07:02)
[2017-12-22] MEDS ORDERED: PROPOFOL INJ 200 MG/20 ML VIAL IV ONE ×2 (07:03→07:05)
[2017-12-22] MEDS ORDERED: PROMETHAZINE HCL INJ 25 MG/1 ML VIAL IV PRN ×2 (08:06)
[2017-12-22] MEDS ORDERED: DIPHENHYDRAMINE HCL 50 MG/ML VIAL IV PRN (08:06)
[2017-12-22] MEDS ORDERED: MEPERIDINE HCL/PF INJ 25 MG/1 ML DISP.SYRIN IV PRN (08:06)
[2017-12-22] MEDS ORDERED: FENTANYL CITRATE INJ/PF 100 MCG/2 ML AMPUL IV PRN ×3 (08:06)
--- NOTE | 2017-12-22 08:53 | OPERATIVE REPORT E ---
Operative Report NAME: CHANNING ROSS : 1940 AGE: 77Y DATE OF SURGERY: 12/22/2017 ROOM: PREOPERATIVE DIAGNOSIS: L1 vertebral compression fracture. POSTOPERATIVE DIAGNOSIS: L1 vertebral compression fracture. PROCEDURE: Balloon kyphoplasty. SURGEON: Dr. Noel Sims HELMET HAT PUNCHER: Dr. Jonn Burger ANESTHESIA: MAC. COMPLICATIONS: None. PROCEDURE IN DETAIL: After obtaining informed consent and advising the patient of the risks and benefits, including serious neurological injury, bleeding, infection, paralysis, allergic reaction, , and failure to adequately treat pain, he was taken to the operating room suite. He was placed comfortably in the prone position as determined by Anesthesia. He was prepped and draped. The C-arm was brought in for lateral and AP visualizations and draped appropriately. Beginning at the L1 level, using a right peripedicular approach, a suitable skin entry site was identified and anesthetized with 1% lidocaine. A small incision was made. The Express trocar was then advanced under serial fluoroscopic views and AP and lateral positions, entering in a peripedicular approach and medializing after passing into the vertebral body to a position medial to the medial pedicular wall. The drill was then placed and removed followed by the balloon. The procedure was then repeated using the left peripedicular approach at the same vertebral level at L1. Once the balloons were adequately inflated the cement mixture was then mixed and using the filler tubes beginning at the right L1 level for a total of 2.8 mL of mixture placed. At the left peripedicular level at L1 another 2.8 mL was placed for a total of 5.6 mL. After the filler tubes were all removed, stylettes were placed into the trocars and the cement was allowed to harden prior to removing the trocars. The region was then cleaned, sterile dressings were placed, and the patient was taken to the PACU for further postoperative care and monitoring. DICTATING PHYSICIAN: JONN BURGER M.D. [id number] PHY#: [id number] ID: [id number] JOB#: [id number] ACCT: [id number] cc:JONN BURGER M.D. >
[2017-12-22] MEDS ORDERED: OXYCODONE-ACETAMINOPHEN 5-325 MG TABLET PO PRN (09:15)
[2017-12-22 10:31] VITALS: BP 112/66
--- NOTE | 2017-12-22 15:49 | RADIOLOGY REPORT (SQ) ---
EXAM DESCRIPTION: NO CHG FLUORO; L SPINE 2 VIEWS COMPLETED DATE/TIME: 12/22/2017 2:23 pm REASON FOR STUDY: KYPHOPLASTY L1 ASST WITH FLUORO IN OR S32.000A WEDGE COMPRESSION FRACTURE OF UNSP LUMBAR VERTEBRA, COMPARISON: None. FLUOROSCOPY TIME: 3.1 minutes Multiple fluoroscopic images saved to PACS. TECHNIQUE: Intra-operative images acquired during surgical procedure to evaluate progress. NUMBER OF IMAGES: Multiple fluoroscopic LIMITATIONS: None. FINDINGS: Selected images from kyphoplasty.Instrumentation in expected location. IMPRESSION: IMAGE(S) OBTAINED DURING PROCEDURE. COMMENT: Quality ID 145: Final reports for procedures using fluoroscopy that document radiation exp osure indices, or exposure time and number of fluorographic images (if radiation exposure indices are not available) Please consult full operative report of the attending physician for description of the procedure. TECHNICAL DOCUMENTATION: JOB ID: [id number] [employer]- All Rights Reserved
--- NOTE | 2017-12-22 15:49 | RADIOLOGY REPORT (SQ) ---
EXAM DESCRIPTION: NO CHG FLUORO; L SPINE 2 VIEWS COMPLETED DATE/TIME: 12/22/2017 2:23 pm REASON FOR STUDY: KYPHOPLASTY L1 ASST WITH FLUORO IN OR S32.000A WEDGE COMPRESSION FRACTURE OF UNSP LUMBAR VERTEBRA, COMPARISON: None. FLUOROSCOPY TIME: 3.1 minutes Multiple fluoroscopic images saved to PACS. TECHNIQUE: Intra-operative images acquired during surgical procedure to evaluate progress. NUMBER OF IMAGES: Multiple fluoroscopic LIMITATIONS: None. FINDINGS: Selected images from kyphoplasty.Instrumentation in expected location. IMPRESSION: IMAGE(S) OBTAINED DURING PROCEDURE. COMMENT: Quality ID 145: Final reports for procedures using fluoroscopy that document radiation exp osure indices, or exposure time and number of fluorographic images (if radiation exposure indices are not available) Please consult full operative report of the attending physician for description of the procedure. TECHNICAL DOCUMENTATION: JOB ID: [id number] [employer] All Rights Reserved
== END 2017-12-22 10:30 | disposition home or self-care (01) ==
LOC: OROUT 05:20
PROVIDERS: ATTEND Pain Medicine Interventional Pain Medicine
PROC: 0QU03JZ Supplement Lumbar Vertebra with Synthetic Substitute, Percutaneous Approach (ICD-10-PCS; 2017-12-22)
PROC: 0QS03ZZ Reposition Lumbar Vertebra, Percutaneous Approach (ICD-10-PCS; principal; 2017-12-22 07:30)
DX: S32.000A Wedge compression fracture of unspecified lumbar vertebra, initial encounter for closed fracture (principal); X58.XXXA Exposure to other specified factors, initial encounter; I10 Essential (primary) hypertension; I25.10 Atherosclerotic heart disease of native coronary artery without angina pectoris; M19.90 Unspecified osteoarthritis, unspecified site; G43.909 Migraine, unspecified, not intractable, without status migrainosus; E78.00 Pure hypercholesterolemia, unspecified; G89.4 Chronic pain syndrome; M48.07 Spinal stenosis, lumbosacral region; M79.1 Myalgia; M54.17 Radiculopathy, lumbosacral region; Z79.82 Long term (current) use of aspirin; Z87.891 Personal history of nicotine dependence; Z79.899 Other long term (current) drug therapy
CPT/HCPCS: 36415; 84132; 81001; 72100; 22514; Q9966; J2250; J0690; J3010; J3490 ×2; A9270; J2704; 1936

== ENCOUNTER → 2018-02-18 | Outpatient (CLI) | payer MEDICARE, OTHER ==
--- NOTE | 2018-02-18 12:10 | RADIOLOGY REPORT (SQ) ---
EXAM DESCRIPTION: VENOUS UNILATERAL LOWER COMPLETED DATE/TIME: 02/18/2018 12:02 pm REASON FOR STUDY: LLE PAIN M79.662 PAIN IN LEFT LOWER LEG COMPARISON: None. TECHNIQUE: Dynamic and static sandoval scale and color images acquired of the left leg venous system. Se lected spectral images acquired with additional compression and augmentation maneuvers. The contralat eral common femoral vein and saphenofemoral junction were also imaged. Images stored on PACS. LIMITATIONS: None. FINDINGS: COMMON FEMORAL: Normal phasicity, compression and augmentation. No visualized echogenic ma terial on sandoval scale. No defects on color images. FEMORAL: Normal compression and augmentation. No visualized echogenic material on sandoval scale. No defe cts on color images. POPLITEAL: Normal compression, augmentation. No visualized echogenic material on sandoval scale. No defec ts on color images. CALF VESSELS: Normal compression, augmentation. No visualized echogenic material on sandoval scale. No de fects on color images. GSV and SSV: Normal compression, augmentation. No visualized echogenic material on sandoval scale. No def ects on color images. ANY DEEP VENOUS INSUFFICIENCY: Not evaluated. ANY EVIDENCE OF POPLITEAL CYST: No. OTHER: No other significant finding. CONTRALATERAL COMMON FEMORAL VEIN AND SAPHENOFEMORAL JUNCTION: Normal phasicity, compression and augmentation. No visualized echogenic material on sandoval scale. No de fects on color images. IMPRESSION: NO EVIDENCE DVT OR SVT IN THE LEFT LEG. TECHNICAL DOCUMENTATION: JOB ID: [id number] [email or web address]- All Rights Reserved Reading location - IP/workstation name: [email or web address]
== END ==
LOC: SP 11:08
PROVIDERS: ATTEND Internal Medicine
DX: M79.662 Pain in left lower leg (principal)
CPT/HCPCS: 93971

== ENCOUNTER → 2018-09-17 | Outpatient (CLI) | payer MEDICARE, OTHER ==
[2018-09-17 17:29] LABS: ABSOLUTE EOSINOPHILS # (AUTO) 0.6 10^3/uL (0.0-0.6); ABSOLUTE MONOCYTES (AUTO) 0.6 10^3/uL (0.1-1.4); ABSOLUTE NEUT (AUTO) 4.4 10^3/uL (1.7-8.2); BASOPHILS % (AUTO) 0.4 % (0-2); EOSINOPHILS % (AUTO) 8.3 % (0-6); HEMATOCRIT 40.5 % (37.9-51.0); LYMPHOCYTES % (AUTO) 25.9 % (13-45); MEAN CORPUSCULAR HEMOGLOBIN 33.7 pg (27.0-33.4); MEAN CORPUSCULAR HGB CONC 34.6 g/dL (32.0-36.0); MEAN CORPUSCULAR VOLUME 97 fl (80-97); MONOCYTES % (AUTO) 8.2 % (3-13); PLATELET COUNT 242 10^3/uL (150-450); RED BLOOD COUNT 4.16 10^6/uL (4.35-5.55); RED CELL DISTRIBUTION WIDTH 14.3 % (11.5-14.0); SEGMENTED NEUTROPHILS % (AUTO) 57.2 % (42-78); TOTAL CELLS COUNTED % (AUTO) 100 %; WHITE BLOOD COUNT 7.6 10^3/uL (4.0-10.5)
[2018-09-17 17:52] LABS: ALANINE AMINOTRANSFERASE 18 U/L (21-72); ALBUMIN 4.2 g/dL (3.5-5.0); ALKALINE PHOSPHATASE 55 U/L (38-126); ANION GAP 11 (5-19); ASPARTATE AMINO TRANSFERASE 25 U/L (17-59); BILIRUBIN,DIRECT 0.2 mg/dL (0.0-0.4); BILIRUBIN,TOTAL 0.8 mg/dL (0.2-1.3); BLOOD UREA NITROGEN 12 mg/dL (7-20); CALCIUM 9.5 mg/dL (8.4-10.2); CARBON DIOXIDE 31 mmol/L (22-30); CHLORIDE 98 mmol/L (98-107); GLUCOSE 117 mg/dL (75-110); POTASSIUM 4.5 mmol/L (3.6-5.0); SODIUM 139.5 mmol/L (137-145); TOTAL PROTEIN 6.4 g/dL (6.3-8.2)
== END ==
LOC: OD 16:03
PROVIDERS: ATTEND Orthopaedic Surgery
DX: Z01.812 Encounter for preprocedural laboratory examination (principal); M48.062 Spinal stenosis, lumbar region with neurogenic claudication; M51.37 Other intervertebral disc degeneration, lumbosacral region; M54.5 Low back pain; M43.26 Fusion of spine, lumbar region
CPT/HCPCS: 36415; 80053; 85025

== ENCOUNTER → 2019-07-27 | Outpatient (CLI) | payer MEDICARE, OTHER ==
[2019-07-27 08:34] LABS: ABSOLUTE EOSINOPHILS # (AUTO) 1.1 10^3/uL (0.0-0.6); ABSOLUTE LYMPHOCYTES (AUTO) 2.3 10^3/uL (0.5-4.7); ABSOLUTE MONOCYTES (AUTO) 0.6 10^3/uL (0.1-1.4); ABSOLUTE NEUT (AUTO) 4.6 10^3/uL (1.7-8.2); BASOPHILS % (AUTO) 0.4 % (0-2); EOSINOPHILS % (AUTO) 12.3 % (0-6); HEMATOCRIT 38.7 % (37.9-51.0); HEMOGLOBIN 13.5 g/dL (13.5-17.0); LYMPHOCYTES % (AUTO) 26.7 % (13-45); MEAN CORPUSCULAR HEMOGLOBIN 33.5 pg (27.0-33.4); MEAN CORPUSCULAR HGB CONC 34.9 g/dL (32.0-36.0); MEAN CORPUSCULAR VOLUME 96 fl (80-97); MONOCYTES % (AUTO) 7.4 % (3-13); PLATELET COUNT 188 10^3/uL (150-450); RED BLOOD COUNT 4.02 10^6/uL (4.35-5.55); RED CELL DISTRIBUTION WIDTH 14.2 % (11.5-14.0); SEGMENTED NEUTROPHILS % (AUTO) 53.2 % (42-78); TOTAL CELLS COUNTED % (AUTO) 100 %; WHITE BLOOD COUNT 8.6 10^3/uL (4.0-10.5)
[2019-07-27 09:01] LABS: ALKALINE PHOSPHATASE 63 U/L (38-126); ANION GAP 11 (5-19); ASPARTATE AMINO TRANSFERASE 23 U/L (17-59); BILIRUBIN,DIRECT 0.2 mg/dL (0.0-0.4); BILIRUBIN,TOTAL 0.6 mg/dL (0.2-1.3); BLOOD UREA NITROGEN 17 mg/dL (7-20); CALCIUM 9.4 mg/dL (8.4-10.2); CARBON DIOXIDE 28 mmol/L (22-30); CHLORIDE 99 mmol/L (98-107); CHOLESTEROL 124.69 mg/dL (0-200); GLUCOSE 82 mg/dL (75-110); POTASSIUM 4.6 mmol/L (3.6-5.0); TOTAL PROTEIN 6.1 g/dL (6.3-8.2); TRIGLYCERIDES 58 mg/dL (<150)
[2019-07-27 09:11] LABS: DIRECT LDL 74 mg/dL (<100)
== END ==
LOC: OD 07:39
PROVIDERS: ATTEND Internal Medicine
DX: I25.10 Atherosclerotic heart disease of native coronary artery without angina pectoris (principal); I10 Essential (primary) hypertension; E78.5 Hyperlipidemia, unspecified
CPT/HCPCS: 36415; 80053; 80061; 84443; 85025

== ENCOUNTER → 2020-02-24 | Outpatient (CLI) | payer MEDICARE, OTHER ==
--- NOTE | 2020-02-24 13:22 | RADIOLOGY REPORT (SQ) ---
EXAM DESCRIPTION: CT ABD/PELVIS NO ORAL OR IV IMAGES COMPLETED DATE/TIME: 02/24/2020 1:02 pm REASON FOR STUDY: DIARRHEA (R19.7), LOWER ABD PAIN (R10.30) R19.7 DIARRHEA, UNSPECIFIED R10.30 LOW ER ABDOMINAL PAIN, UNSPECIFIED COMPARISON: 08/22/2017 CT TECHNIQUE: CT scan of the abdomen and pelvis performed without intravenous or oral contrast. Images reviewed with lung, soft tissue, and bone windows. Reconstructed coronal and sagittal MPR images revi ewed. All images stored on PACS. All CT scanners at this facility use dose modulation, iterative reconstruction, and/or weight based d osing when appropriate to reduce radiation dose to as low as reasonably achievable (ALARA). [facility]: Dose Right [facility]: CareDose [facility]: Dose Right [facility]: Teradose 4D [facility]: [employer] RADIATION DOSE: CT Rad equipment meets quality standard of care and radiation dose reduction techniq ues were employed. CTDIvol: 6.0 mGy. DLP: 306 mGy-cm.mGy. LIMITATIONS: None. FINDINGS: LOWER CHEST: No acute findings. Coronary atherosclerosis. NON-CONTRASTED LIVER, SPLEEN, ADRENALS: Evaluation limited by lack of IV contrast. Nodular hepatic c ontour with decreased size of the liver compared to exam dated 08/22/2017. No identified significant masses. PANCREAS: No masses. No peripancreatic inflammatory changes. GALLBLADDER: No identified stones by CT criteria. No inflammatory changes to suggest cholecystitis. RIGHT KIDNEY AND URETER: No suspicious masses. Assessment limited by lack of IV contrast. No signif icant calcifications. No hydronephrosis or hydroureter. LEFT KIDNEY AND URETER: No suspicious masses. Assessment limited by lack of IV contrast. No signifi cant calcifications. No hydronephrosis or hydroureter. AORTA AND RETROPERITONEUM: Aortoiliac atherosclerosis. No aneurysm. No retroperitoneal adenopathy, mass or hemorrhage. BOWEL AND PERITONEAL CAVITY: Scattered colonic diverticula. Minimal ill-defined stranding about the sigmoid colon, possibly acute diverticulitis. APPENDIX: Normal. PELVIS, BLADDER, AND ABDOMINAL WALL:Decompressed urinary bladder. No pelvic free fluid or adenopathy . Evidence of prior hernia repair within the pelvis. BONES: No acute bony abnormality. No suspicious osseous lesions. Multilevel lumbar spondylosis with posterior fusion hardware at L3-L5. Prior L1 kyphoplasty with significant compression deformity. OTHER: No other significant finding. IMPRESSION: 1. Scattered colonic diverticula with mild ill-defined stranding about the sigmoid colo n, possibly mild uncomplicated diverticulitis. 2. Nodular hepatic contour with decreased size compared to the exam dated 08/22/2017, suggestive of i ntrinsic liver disease/cirrhosis. 3. Additional chronic findings as above. COMMENT: Quality ID # [id number]: Final reports with documentation of one or more dose reduction techniques (e.g., Automated exposure control, adjustment of the mA and/or kV according to patient size, use of iterative reconstruction technique) TECHNICAL DOCUMENTATION: JOB ID: [id number] [employer]- All Rights Reserved Reading location - IP/workstation name: [email or web address]
== END ==
LOC: RAD 12:46
PROVIDERS: ATTEND Internal Medicine
DX: K57.30 Diverticulosis of large intestine without perforation or abscess without bleeding (principal); R19.7 Diarrhea, unspecified; R10.30 Lower abdominal pain, unspecified
CPT/HCPCS: 74176